=== PATIENT | male | born 1990 | race Hispanic/Latino ===

== ENCOUNTER 2025-06-08 10:49 | Emergency (ER) | payer BC ==
[~2025-06-08] VITALS: Ht 180.3 cm; Wt 81.6 kg
--- NOTE | 2025-06-08 10:54 | ERN ---
ED Note History of Present Illness Stated Complaint: ABD PAIN Chief Complaint: Abdominal Pain Time Seen by MD: 10:51 Dictation: PATIENT IS A 35-YEAR-OLD MALE COMING IN TODAY WITH COMPLAINTS OF RIGHT UPPER QUADRANT PAIN ONSET YESTERDAY WITH NAUSEA VOMITING MULTIPLE TIMES. HE HAS HAD NO FEVER NO CHILLS STATES HE HAS NO CHANGE IN URINATION NO FLANK PAIN. 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 DOCTOR Allergies: Coded Allergies: No Known Drug Allergies (Verified Allergy, Unknown, 12/23/13) Home Meds Active Scripts Ibuprofen (Ibuprofen 800 mg Tab) 800 Mg Tab, 800 MG PO Q8H PRN for fever or pain, #30 TAB 0 Refills Prov:ZACH TOBARP 06/08/25 Amoxicillin/Potassium Clav (Amox Tr-K Clv 875-125 mg Tab) 875 Mg-125 Mg Tablet, 1 EACH PO BID for 5 Days, #10 TAB 0 Refills Prov:ZACH TOBARP 06/08/25 Past Medical History RN Note Reviewed/Agreed w/PFSH: Yes Review of System Dictation CONSTITUTIONAL: NEGATIVE EXCEPT FOR HPI HEAD/FACE: NEGATIVE EXCEPT FOR HPI EENT: NEGATIVE EXCEPT FOR HPI RESPIRATORY: NEGATIVE EXCEPT FOR HPI GASTROINTESTINAL/ABDOMINAL: NEGATIVE EXCEPT FOR HPI RIGHT UPPER QUADRANT PAIN WITH NAUSEA VOMITING GENITOURINARY: NEGATIVE EXCEPT FOR HPI MUSCULOSKELETAL: NEGATIVE EXCEPT FOR HPI INTEGUMENTARY: NEGATIVE EXCEPT FOR HPI NEUROLOGICAL/PSYCH: NEGATIVE EXCEPT FOR HPI HEMATOLOGIC/LYMPHATIC: NEGATIVE EXCEPT FOR HPI ALL SYSTEMS NEGATIVE, EXCEPT NOTED ABOVE. 13 POINT REVIEW OF SYSTEMS ASSESSED AND ALL NEGATIVE EXCEPT FOR ABOVE. Initial Vital Sign VS Vital Signs Date Time Temp Pulse Resp B/P (MAP) Pulse Ox O2 Delivery O2 Flow Rate FiO2 06/08/25 10:50 97.5 71 18 125/59 100 Room Air 0 06/08/25 11:15 21 Physical Exam Dictation VITAL SIGNS REVIEWED GENERAL APPEARANCE: ALERT, ORIENTED X 3, MODERATE ACUTE DISTRESS, WELL DEVELOPED, NOURISHED. HEAD AND FACE: NON-TRAUMATIC. EYES: PERRL, PINK CONJUNCTIVAS, EYELID NO TRAUMA, ANTERIOR CHAMBER WITH ARCUS SENILIS. EARS: PINNAS INTACT AND NO SIGNS OF TRAUMA OR ERYTHEMA EAR CANALS CLEAR AND NO DISCHARGE TM NO ERYTHEMA NOSE: NO DISCHARGE, NO BLEEDING. OROPHARYNX: MOUTH NORMAL, TONGUE PINK, PHARYNX CLEAR,NO ERYTHEMA, TONSILS NO EXUDATES, NO ABSCESSES NOTED, MUCOUS MEMBRANE MOIST NECK: SUPPLE, NON-TENDER, NO THYROMEGALY, NO MASSES, NO JVD, NO BRUITS BREAST:DEFERRED CHEST:NO TENDERNESS, NO CREPITUS, NO PARADOXICAL MOVEMENT, NO RETRACTIONS LUNGS:CLEAR, WELL-VENTILATED, SYMMETRIC, NO RALES, NO WHEEZING, NO RHONCHI, NO STRIDOR, GOOD BREATH SOUNDS BILATERALLY HEART: REGULAR RATE, REGULAR RHYTHM, NO MURMUR, NO GALLOPS VASCULAR: NO PERIPHERAL EDEMA, ABDOMEN: SOFT, POSITIVE BOWEL SOUNDS, NONDISTENDED MILD RIGHT UPPER QUADRANT PAIN WITHOUT TRUE PHAM'S SIGN. NO GUARDING RECTAL: DEFERRED GENITAL: DEFERRED NEUROLOGICAL: NORMAL SPEECH, MOTOR FUNCTION INTACT, SENSORY FUNCTION INTACT MUSCULOSKELETAL: NECK NONTENDER, FULL RANGE OF MOTION, BACK NONTENDER, FULL RANGE OF MOTION, EXTREMITIES: NONTENDER, FULL RANGE OF MOTION SKIN: COLOR PINK, DRY, NO TURGOR, NO RASH, NO LACERATIONS, NO ABRASIONS, NO CONTUSIONS. LYMPHATIC: DEFERRED Results (Laboratory/Radiology) Laboratory/Radiology Laboratory Tests Test 06/08/25 10:50 06/08/25 10:58 Urine Color LIGHT-YELLOW (YELLOW) Urine Appearance CLEAR (CLEAR) Urine pH 8.5 (5.0-8.0) H Urine Specific [place] 1.022 (1.001-1.031) Urine Protein 30 mg/dL (NEGATIVE) H Urine Glucose (UA) NEGATIVE mg/dL (NEGATIVE) Urine Ketones NEGATIVE mg/dL (NEGATIVE) Urine Occult Blood MODERATE (NEGATIVE) H Urine Nitrate NEGATIVE (NEGATIVE) Urine Bilirubin NEGATIVE mg/dL (NEGATIVE) Urine Urobilinogen 2.0 mg/dL (0.2-1.0) H Urine Leukocyte Esterase NEGATIVE Vanessa/uL Urine RBC 0-1 /HPF (0-1) Urine WBC 0-1 /HPF (0-1) Urine Squamous Epithelial Cells 2-5 /HPF (0-2) Urine Bacteria Rare /HPF (None Seen) White Blood Count 12.6 K/uL (4.8-10.8) H Red Blood Count 5.38 MIL/uL (4.50-6.20) Hemoglobin 15.7 g/dL (14.0-18.0) Hematocrit 46.9 % (42-54) Mean Corpuscular Volume 87.2 fL (79-99) Mean Corpuscular Hemoglobin 29.2 pg (27.0-33.0) Mean Corpuscular Hemoglobin Concent 33.5 g/dL (32.0-36.0) Red Cell Distribution Width 12.8 % (11.0-15.5) Platelet Count 265 K/uL (130-400) Mean Platelet Volume 10.1 fL (7.5-10.5) Immature Granulocyte % (Auto) 0.5 % (0-1) Neutrophils (%) (Auto) 82.0 % (40.0-77.0) H Lymphocytes (%) (Auto) 12.2 % (21.0-51.0) L Monocytes (%) (Auto) 4.7 % (3.0-13.0) Eosinophils (%) (Auto) 0.3 % (0.0-8.0) Basophils (%) (Auto) 0.3 % (0.0-5.0) Neutrophils # (Auto) 10.3 K/uL (1.8-7.7) H Lymphocytes # (Auto) 1.5 K/uL (1.0-4.8) Monocytes # (Auto) 0.6 K/uL (0.1-1.0) Eosinophils # (Auto) 0.04 K/uL (0.00-0.70) Basophils # (Auto) 0.04 K/uL (0.00-0.20) Absolute Immature Granulocyte (auto 0.06 K/uL (0-1) Nucleated Red Blood Cells 0.0 % (0.0-0.19) Sodium Level 141 mmol/L (136-145) Potassium Level 3.6 mmol/L (3.5-5.1) Chloride Level 105 mmol/L (101-111) Carbon Dioxide Level 26 mmol/L (21-32) Blood Urea Nitrogen 9 mg/dL (7-18) Creatinine 1.2 mg/dL (0.5-1.3) Glomerular Filtration Rate Calc 81 mL/min (>90) Random Glucose 132 mg/dL (70-105) H Total Calcium 9.4 mg/dL (8.5-10.1) Total Bilirubin 0.5 mg/dL (0.2-1.0) Aspartate Amino Transf (AST/SGOT) 16 U/L (10-37) Alanine Aminotransferase (ALT/SGPT) 13 U/L (12-78) Alkaline Phosphatase 66 U/L (50-136) Total Protein 8.0 g/dL (6.0-8.3) Albumin 4.2 g/dL (3.5-5.0) Lipase 74 U/L (16-77) 1145/RIGHT UPPER QUADRANT ULTRASOUND DEMONSTRATES LIVER UNREMARKABLE GALLBLADDER WALL 2 MM NO PERICHOLECYSTIC FLUID. NO STONES COMMON BILE DUCT 4 MM CREAS: Unremarkable. SPLEEN: Unremarkable. ADRENAL GLANDS: Unremarkable. KIDNEYS, URETERS, AND BLADDER: There is a 3 mm mildly obstructing distal right ureteral stone located just above the right ureterovesicular junction resulting in mild right-sided hydronephrosis and mild right-sided hydroureter. There is mild right perinephric fluid. Delayed excretion of contrast into the right-sided collecting system on delayed sequence there is a 1.5 cm simple cyst within the interpolar region of the right kidney. Left kidney is normal in appearance. STOMACH AND BOWEL: Unremarkable appearance of the stomach and bowel. No evidence of bowel obstruction. No evidence suggesting enteritis or colitis. APPENDIX: No evidence of acute appendicitis on CT examination. PERITONEUM: No free fluid. No free air. LYMPH NODES: No lymphadenopathy is evident. REPRODUCTIVE: Unremarkable as visualized. VASCULATURE: No evidence of abdominal aortic aneurysm. BONES: No aggressive appearing osseous lesion. No acute osseous pathology evident. IMPRESSION: 1. 3 mm mildly obstructing distal right ureteral stone with mild right-sided hydronephrosis and hydroureter. 2. Mild right perinephric fluid. 3. Delayed excretion of contrast into the right collecting system. 4. 1.5 cm simple cyst in the interpolar region of the right kidney. 5. No evidence of acute appendicitis. /[facility] Reviewed?: Yes ED Course ED Course Orders Procedure Category Date Status Time Cbc With Differential LAB 06/08/25 Complete 10:52 Comprehensive LAB 06/08/25 Complete Metabolic Panel 10:52 Urinalysis Profile LAB 06/08/25 Complete 10:52 Us Abdominal Ruq\Ltd US 06/08/25 Resulted 10:52 0.9%Nacl 1000ml (Ns PHA 06/08/25 Complete 1000ml) 11:00 Ketorolac PHA 06/08/25 Complete Tromethamine 30mg/Ml 11:00 Ondansetron 4mg Inj PHA 06/08/25 Complete (Zofran 4mg Inj) 11:00 Lipase LAB 06/08/25 Complete 10:52 Us Abd Limited/Abd US 06/08/25 Resulted Wall 12:43 Morphine 2mg Syg PHA 06/08/25 Complete (Morphine 2mg Syg) 14:00 Morphine 4mg Syg PHA 06/08/25 Complete (Morphine 4mg Syg) 14:00 Ct Abdomen/Pelvis CT 06/08/25 Resulted W/Contrast 13:53 Iohexol (Omnipaque) PHA 06/08/25 Complete 14:13 Ondansetron 4mg Inj PHA 06/08/25 Complete (Zofran 4mg Inj) 16:00 Amox/Clav 875/125mg PHA 06/08/25 Complete Tab (Augmentin 875-1 16:00 Tamsulosin Hcl PHA 06/08/25 Complete (Flomax) 16:00 Ibuprofen 800 Mg Tab PHA 06/08/25 Complete (Motrin) 16:00 Current Medications Medications (Trade) Dose Ordered Sig/Марина Route PRN Reason Start Time Stop Time Status Last Admin Dose Admin Amoxicillin/ Clavulanate Potassium (Augmentin 875-125 Tablet) 1 each ONCE ONCE PO 06/08/25 16:00 06/08/25 16:01 DC 06/08/25 15:58 Ibuprofen (moTRIN) 800 mg ONCE ONCE PO 06/08/25 16:00 06/08/25 16:01 DC 06/08/25 15:58 Iohexol (Omnipaque) 75 ml STK-MED ONCE IV 06/08/25 14:13 06/08/25 14:13 DC Ketorolac Tromethamine (toRADol) 30 mg ONCE ONCE IVP 06/08/25 11:00 06/08/25 11:01 DC 06/08/25 11:05 Morphine Sulfate (morPHINE 2MG SYG) 2 mg ONCE ONCE IVP 06/08/25 14:00 06/08/25 13:51 DC Morphine Sulfate (morPHINE 4MG SYG) 2 mg ONCE ONCE IVP 06/08/25 14:00 06/08/25 14:01 DC 06/08/25 13:56 Ondansetron HCl (zoFRAN 4MG INJ) 4 mg ONCE ONCE IVP 06/08/25 11:00 06/08/25 11:01 DC 06/08/25 11:05 Ondansetron HCl (zoFRAN 4MG INJ) 4 mg ONCE ONCE IVP 06/08/25 16:00 06/08/25 16:01 DC 06/08/25 15:58 Sodium Chloride 1,000 ml @ 0 mls/hr ONCE ONCE IV 06/08/25 11:00 06/08/25 11:01 DC 06/08/25 11:10 Tamsulosin HCl (FloMAX) 0.4 mg ONCE ONCE PO 06/08/25 16:00 06/08/25 16:01 DC 06/08/25 15:58 Vital Signs Date Time Temp Pulse Resp B/P (MAP) Pulse Ox O2 Delivery O2 Flow Rate FiO2 06/08/25 16:08 98.4 81 20 116/75 100 Room Air* 0 21 06/08/25 12:41 98.8 84 25 114/72 96 Room Air* 0 21 06/08/25 11:15 99.0 74 20 122/87 100 Room Air* 0 21 06/08/25 10:50 97.5 71 18 125/59 100 Room Air 0 1245/WENT TO RE-EXAMINED PATIENT AFTER TREATMENT WITH FLUIDS TORADOL AND LABS. HE IS AWARE THE ULTRASOUND RIGHT UPPER QUADRANT IS NEGATIVE NOW HE STAYED IN THE PAIN HAS MOVED TO HIS RIGHT LOWER QUADRANT. I WE WILL BE ULTRASOUND THE RIGHT LOWER QUADRANT TO RULE OUT APPENDICITIS.1620/ 1620/PATIENT STATES PAIN MARKEDLY IMPROVED AFTER TREATMENT. HE IS AWARE HE HAS A 3 MM STONE WITH MILD HYDRO NEPHROSIS WE WILL PATIENT PATIENT ON FLOMAX AUGMENTIN AND IBUPROFEN TOLD FOLLOW UP WITH 2-3 DAYS AND INCREASE HIS WATER INTAKE. Medical Decision Making MDM MDM: DIFFERENTIAL DIAGNOSIS: CHOLELITHIASIS/BILIARY COLIC/APPENDICITIS/DIVERTICULITIS/HERNIA/ELECTROLYTE IMBALANCE/DEHYDRATION/UTI/RENAL STONE RATIONALE: TESTS CONSIDERED AND ORDERED SECONDARY TO SHARED DECISION MAKING INCLUDE: LABS/RADIOLOGY X2 PREVIOUS OUTSIDE RECORDS REVIEWED: OLD ER VISITS. RISK OF COMPLICATION AND/OR MORBIDITY OR MORTALITY OF PATIENT MANAGEMENT: NONE MEDICATIONS-PER MEDICATION RECONCILIATION NEED FOR HOSPITALIZATION: PATIENT DOES NOT MEET CRITERIA FOR HOSPITALIZATION. NONE NEED FOR EMERGENCY MAJOR/MINOR SURGERY: NO THERE ARE NO SOCIAL CONCERNS WITH THIS PATIENT. PRESCRIPTION DRUG MANAGEMENT AUGMENTIN/FLOMAX/IBUPROFEN PRESCRIPTIONS WILL INCLUDE SYMPTOMATIC CARE PATIENT'S PRIOR EXTERNAL MEDICAL RECORDS FROM OTHER ER VISITS WERE REVIEWED BY ME INDICATED. PRIOR TESTING AND RESULTS FROM PREVIOUS VISITS WERE REVIEWED. PRIOR TESTS WERE TAKEN INTO ACCOUNT WITH MEDICAL DECISION MAKING AND RESOURCE UTILIZATION, INDEPENDENT HISTORIAN/HISTORIANS WERE USED TO OBTAIN COMPLETE MEDICAL HISTORY. I INDEPENDENTLY INTERPRETED THE TEST THAT WERE PERFORMED, RESULTS WERE REVIEWED BY ME AND CONSIDERED FINDINGS ON RADIOLOGY IF ORDERED. MEDICAL MANAGEMENT AND EXAMINATION INTERPRETATION DISCUSSIONS WERE HAD BY ME WITH OTHER QUALIFIED HEALTHCARE PROFESSIONALS INDICATED FOR THE PATIENT'S CARE. DX & DISP Disposition: Discharge Departure Impression: Primary Impression: Hydronephrosis, right Additional Impressions: Kidney stone on right side, Hyperglycemia Condition: Stable Scripts Ondansetron (Ondansetron Odt) 4 Mg Tab.rapdis 4 MG PO Q6HPRN PRN for nausea, #16 TAB 0 Refills Prov: ZACH TOBRA [employer]AD [employer] DEVELOPER 06/08/25 Ibuprofen (Ibuprofen 800 mg Tab) 800 Mg Tab 800 MG PO Q8H PRN for fever or pain, #30 TAB 0 Refills Prov: ZACH TOBAR [employer] DEVELOPER 06/08/25 Amoxicillin/Potassium Clav (Amox Tr-K Clv 875-125 mg Tab) 875 Mg-125 Mg Tablet 1 EACH PO BID for 5 Days, #10 TAB 0 Refills Prov: ZACH TOBAR [employer] DEVELOPER 06/08/25 Additional Instructions: FOLLOW-UP WITH PRIMARY CARE PROVIDER IN 1 TO 2 DAYS. TAKE MEDICATIONS DIRECTED HERE IN THE EMERGENCY ROOM. OKAY TO CONTINUE HOME MEDICATIONS UNLESS OTHERWISE DISCUSSED DURING YOUR VISIT IN THE EMERGENCY ROOM TODAY. RETURN TO YOUR NEAREST EMERGENCY ROOM IF SYMPTOMS WORSEN OR IF THERE IS NO IMPROVEMENT. CALL 911 IF YOU NEED IMMEDIATE ASSISTANCE. TAKE TYLENOL OR MOTRIN OVER-THE-CO UNTER NEEDED AND IF NO CONTRAINDICATIONS ARE PRESENT. INCREASE ORAL HYDRATION. A WOUND CULTURE OR URINE CULTURE WAS ORDERED HERE IN THE EMERGENCY ROOM DEPARTMENT PLEASE FOLLOW-UP WITH PRIMARY CARE PROVIDER AND ADVISE THEM TO GET REPEAT PORTS FROM OUR FACILITY. IF YOU HAD ANY JAKE WRAP/SPLINTS THAT WERE APPLIED HERE, PLEASE DO NOT REMOVE THEM UNTIL YOU SEE YOUR PRIMARY CARE OR SPECIALTY. TAKE ANTIBIOTICS DIRECTED UNTIL GONE. INCREASE YOUR WATER INTAKE TO 1 GAL OF WATER A DAY. TAKE IBUPROFEN NEEDED FOR PAIN. CALL UROLOGIST FOR AN APPOINTMENT IN THE NEXT 1-2 DAYS. Referrals: SELF,REFERRAL (PCP) SUSHIL BEY MD Time of Disposition: 16:22 I have reviewed the case, and I agree with, Diagnosis and Plan ZACH TOBAR [facility] Jun 08, 2025 10:54
[2025-06-08 11:06] LABS: IMMATURE GRANULOCYTE ABSOLUTE 0.06 K/uL (0-1); NUCLEATED RED BLOOD CELLS 0.0 % (0.0-0.19); PLATELET COUNT (AUTO) 265 K/uL (130-400); RED BLOOD CELL COUNT(AUTO) 5.38 MIL/uL (4.50-6.20); RED CELL DISTRIBUTION WIDTH 12.8 % (11.0-15.5); WHITE BLOOD COUNT (AUTO) 12.6 K/uL (4.8-10.8)
[2025-06-08] MEDS: 0.9%NACL 1000ML 1,000 ML IV ONE (11:10)
[2025-06-08 11:19] LABS: CREATININE 1.2 mg/dL (0.5-1.3); GLOMERULAR FILTR. RATE CALC 81.0 mL/min (>90); GLUCOSE,RANDOM 132.0 mg/dL (70-105); SODIUM SERUM 141.0 mmol/L (136-145); UREA NITROGEN, BLOOD 9.0 mg/dL (7-18)
[2025-06-08 11:23] LABS: ASPARTATE AMINOTRANSFERASE 16.0 U/L (10-37); TOTAL PROTEIN, SERUM 8.0 g/dL (6.0-8.3)
[2025-06-08 11:28] LABS: APPEARANCE,URINE CLEAR (CLEAR); GLUCOSE, URINE (UA) NEGATIVE (NEGATIVE); LEUKOCYTE ESTERASE ,URINE NEGATIVE Leu/uL (NEGATIVE); NITRATE,URINE NEGATIVE (NEGATIVE); OCCULT BLOOD,URINE MODERATE (NEGATIVE)
[2025-06-08 11:31] LABS: ADD UA MICROSCOPIC YES
--- NOTE | 2025-06-08 12:02 | HMCIMG ---
EXAM: US Abdomen, Right Upper Quadrant. CLINICAL HISTORY: Abdominal Pain. TECHNIQUE: Right upper quadrant sonography performed with image documentation. COMPARISON: None provided. FINDINGS: LIVER: Within normal limits in size, 14 cm, and increased echogenicity. No mass. GALLBLADDER: The gallbladder appears normal. No gallbladder wall thickening seen, 0.2 cm. No gallstones are evident. COMMON BILE DUCT: Within normal limits in size, 0.4 cm. PANCREAS: The distal pancreas is obscured by bowel gas. The visualized portion of the pancreas appears within normal limits. RIGHT KIDNEY: Unremarkable. Normal renal contours. No renal mass or calculus. No hydronephrosis. IMPRESSION: No acute sonographic abnormalities were demonstrated in the images obtained. Mild hepatic steatosis. Recommend CT abdomen for further evaluation if clinically warranted. /[place]
--- NOTE | 2025-06-08 14:00 | HMCIMG ---
EXAM: US Abdomen Limited, Appendix CLINICAL HISTORY: RIGHT LOWER QUADRANT PAIN TENDERNESS. RULE OUT APPY TECHNIQUE: Real-time ultrasound of the right lower quadrant with image documentation. COMPARISON: None provided. FINDINGS: APPENDIX: The appendix is not visualized due to obscuration by bowel gas. No secondary sonographic signs of acute appendicitis are identified. The possibility of appendicitis cannot be excluded on this limited study. BOWEL: Within normal limits on the limited images obtained. OTHER: No free fluid or abnormal mass seen. IMPRESSION: * Appendix not visualized; no definitive evidence of acute appendicitis. * Limited study; clinical correlation is advised. /[place]
[2025-06-08] MEDS ORDERED: IOHEXOL-350 75 ML VIAL IV ONE (14:13)
--- NOTE | 2025-06-08 15:33 | HMCIMG ---
EXAM: CT Abdomen and Pelvis with IV contrast CLINICAL HISTORY: LOWER QUADRANT PAIN WITH [address]20 WBCS. ULTRASOUND RIGHT LOWER QUADRANT UNABL TECHNIQUE: Axial computed tomography images of the abdomen and pelvis with intravenous contrast. CONTRAST: with intravenous contrast. COMPARISON: None provided. FINDINGS: LUNG BASES: The lung bases appear clear. No pleural effusions are seen. LIVER: Unremarkable. GALLBLADDER AND BILE DUCTS: The gallbladder appears within normal limits. No radioopaque gallstones are seen. No biliary ductal dilatation is evident. PANCREAS: Unremarkable. SPLEEN: Unremarkable. ADRENAL GLANDS: Unremarkable. KIDNEYS, URETERS, AND BLADDER: There is a 3 mm mildly obstructing distal right ureteral stone located just above the right ureterovesicular junction resulting in mild right-sided hydronephrosis and mild right-sided hydroureter. There is mild right perinephric fluid. Delayed excretion of contrast into the right-sided collecting system on delayed sequence there is a 1.5 cm simple cyst within the interpolar region of the right kidney. Left kidney is normal in appearance. STOMACH AND BOWEL: Unremarkable appearance of the stomach and bowel. No evidence of bowel obstruction. No evidence suggesting enteritis or colitis. APPENDIX: No evidence of acute appendicitis on CT examination. PERITONEUM: No free fluid. No free air. LYMPH NODES: No lymphadenopathy is evident. REPRODUCTIVE: Unremarkable as visualized. VASCULATURE: No evidence of abdominal aortic aneurysm. BONES: No aggressive appearing osseous lesion. No acute osseous pathology evident. IMPRESSION: 1. 3 mm mildly obstructing distal right ureteral stone with mild right-sided hydronephrosis and hydroureter. 2. Mild right perinephric fluid. 3. Delayed excretion of contrast into the right collecting system. 4. 1.5 cm simple cyst in the interpolar region of the right kidney. 5. No evidence of acute appendicitis. /[place]
[2025-06-08] MEDS: AMOX/CLAV 875/125MG TAB PO ONE (15:58)
[2025-06-08] MEDS ORDERED: AMOX1TAB16 PO (16:26)
[2025-06-08] MEDS ORDERED: IBUP-2077 PO (16:26)
[2025-06-08] MEDS ORDERED: ONDA-243 PO (17:03)
[2025-06-08 17:22] VITALS: BP 121/75; PULSE 88; RESP 16; TEMP 98.4; O2SAT 100
== END 2025-06-08 17:22 | disposition home or self-care (01) ==
LOC: EDH 10:49
DX: N13.2 Hydronephrosis with renal and ureteral calculous obstruction (principal)
CPT/HCPCS: 99285; 74177; 76705 ×2; 96374; 96375; 96361; 80053; 83690; 85025; 81001; 36415; 96376; J1885; J7030; J2405 ×2; J2270; Q9967